=== PATIENT | female | born 1990 | race Caucasian/White ===

== ENCOUNTER 2016-12-27 11:30 | Inpatient (IN) | payer OTHER ==
[~2016-12-27] VITALS: Ht 162.6 cm; Wt 78.6 kg
[2016-12-27 12:50] VITALS: Ht 162.6 cm; Wt 78.6 kg
[2016-12-27 12:51] VITALS: BP 124/84; PULSE 80; RESP 20
[2016-12-27] MEDS ORDERED: CARBOPROST 250 MCG INJ IM PRN (13:00)
[2016-12-27] MEDS ORDERED: DINOPROSTONE 10 MG VAG SUPP VAG ONE (13:00)
[2016-12-27] MEDS ORDERED: METHYLERGONOVINE 0.2 MG INJ IM PRN (13:00)
[2016-12-27] MEDS ORDERED: BUTORPHANOL 2 MG INJ IV PRN ×2 (13:00)
[2016-12-27] MEDS ORDERED: OXYTOCIN 30 UNITS/LR 500 ML IV PRN (13:00)
[2016-12-27] MEDS ORDERED: LACTATED RINGER'S 1,000 ML IV PRN (13:00)
[2016-12-27] MEDS ORDERED: IBUPROFEN 600 MG TAB PO PRN (13:00)
[2016-12-27] MEDS ORDERED: LIDOCAINE 1% (MPF) 30 ML INJ INJ PRN (13:00)
[2016-12-27] MEDS ORDERED: MISOPROSTOL 200 MCG TAB PR PRN (13:00)
[2016-12-27] MEDS ORDERED: OXYTOCIN 30 UNITS/LR 500 ML IV SCH ×2 (13:00→18:30)
[2016-12-27] MEDS: LACTATED RINGER'S 1,000 ML IV SCH ×2 (13:04→17:22)
[2016-12-27 13:08] LABS: BASOPHILS % 0.3 % (0.0-2.0); EOSINOPHILS # 0.1 10^3/ul (0.0-0.5); EOSINOPHILS % 0.8 % (0.0-7.0); HEMATOCRIT 42.4 % (37.0-47.0); LYMPHOCYTES # 2.2 10^3/ul (0.8-2.9); LYMPHOCYTES % 25.3 % (15.0-51.0); MEAN CORPUSCULAR HEMOGLOBIN 33.2 pg (29.0-33.0); MEAN CORPUSCULAR HGB CONC 35.4 g/dl (32.0-37.0); MEAN CORPUSCULAR VOLUME 93.8 fl (82.0-101.0); MEAN PLATELET VOLUME 10.8 fl (7.4-10.4); MONOCYTE # 0.7 10^3/ul (0.3-0.9); MONOCYTES % 8.6 % (0.0-11.0); NEUTROPHILS % 64.3 % (39.0-77.0); PLATELET COUNT 209 10^3/UL (140-415); RED BLOOD COUNT 4.52 10^6/ul (4.20-5.40); RED CELL DISTRIBUTION WIDTH 13.3 % (11.5-14.5); WHITE BLOOD COUNT 8.6 10^3/ul (4.8-10.8)
[2016-12-27 13:18] LABS: INR 0.88; PROTIME 11.9 Sec (12.2-14.2); PT RATIO 0.9
[2016-12-27 13:19] LABS: PARTIAL THROMBOPLASTIN TIME 29.7 Sec (25.0-35.0)
[2016-12-27 13:39] LABS: ALBUMIN/GLOBULIN RATIO 0.97; BILIRUBIN,INDIRECT 0.2 mg/dl (0-1.1); BILIRUBIN,TOTAL 0.2 mg/dl (0.2-1.3); CREATININE 0.68 mg/dl (0.44-1.00); TOTAL PROTEIN 8.1 g/dl (6.1-8.1)
[2016-12-27 13:53] LABS: ADD UMIC NO; UR ASCORBIC ACID NEGATIVE (NEGATIVE); UR BILIRUBIN (Dip) NEGATIVE (NEGATIVE); UR BLOOD (Dip) NEGATIVE (NEGATIVE); UR CLARITY CLEAR (CLEAR); UR COLOR STRAW (YELLOW); UR GLUCOSE (Dip) NEGATIVE (NEGATIVE); UR KETONES (Dip) NEGATIVE (NEGATIVE); UR LEUKOCYTE ESTERASE (Dip) NEGATIVE Leu/ul (NEGATIVE); UR NITRITE (Dip) NEGATIVE (NEGATIVE); UR SPECIFIC GRAVITY (Dip) 1.008 (1.003-1.030); UR TOTAL PROTEIN (Dip) NEGATIVE (NEGATIVE); UR UROBILINOGEN (Dip) NEGATIVE (NEGATIVE)
--- NOTE | 2016-12-27 19:07 | RADRPT ---
PROCEDURE: US OB. CLINICAL INDICATION: Elevated blood pressure TECHNIQUE: Multiple sonographic OB images of the pelvis were obtained. The images were reviewed o n a PACS workstation. COMPARISON: No prior studies are available for comparison. FINDINGS: There is a single viable intrauterine gestation. Cardiac activity is present with 135 beats per min hopi. There is a vertex presentation. Measurements were made in order to determine age. The results are as follows: BPD =9.7 cm HC =34.2 cm AC =35.7 cm FL =7.2 cm. Estimated gestational age of approximately 39 weeks 2 days. The estimated date of delivery is 01/01/2017. The EFW = 3749 grams. The placenta is anterior in location and grade 2. There is no evidence for an abruption or placenta previa. There are no adnexal masses. IMPRESSION: 1. Single live intrauterine with an estimated gestational age of 39 weeks and 2 days. 2. Estimated gestational weight of 3749 grams. RPTAT: HPNM Physician [place] Date Time Electronically viewed and signed by Physician Bay on 12/27/2016 19:07 /
[2016-12-28] MEDS: LACTATED RINGER'S 1,000 ML IV SCH ×3 (02:55→20:54)
[2016-12-28] MEDS ORDERED: FENTAnyl 2MCG/ML-ROPIV 0.2% 100 ML ONE (04:36)
[2016-12-28] MEDS ORDERED: FENTAnyl 2MCG/ML-ROPIV 0.2% 100 ML BAG EPI SCH (05:00)
[2016-12-28] MEDS ORDERED: NALOXONE (0.4 MG/ML) INJ IV PRN (05:00)
--- NOTE | 2016-12-28 10:10 | HP ---
Date/Time of Note Date/Time of Note DATE: 12/28/16 TIME: 10:08 OB - History Hx of Present Free Text/Dictation at 38 weeks with elevated bp and induction for PIH Care: Good Care Ultrasounds: Normal mid trimester US Obstetrical Complications: Gestational Hypertension Medical Complications: None Past Family/Social History * Past Medical, Surgical, Family and Obstetric Histories reviewed from chart. OB Admission Exam Vital Signs Vital Signs Vital Signs Date Time Temp Pulse Resp B/P Pulse Ox O2 Delivery O2 Flow Rate FiO2 12/27/16 12:51 98.6 80 20 124/84 Room Air Physical Exam HEENT: WNL Heart: Rhythm Normal Lungs: Clear, Equal Abdomen: WNL Extremities: Normal Reflexes: Normal Cervical Dilatation: 10cm Effacement: 100% Station: +3 Membranes: Ruptured Amniotic Fluid: Clear Heart Rate: 130's Accelerations: Accelerations Present Decelerations: No Decelerations Contractions on Admission: None Intensity: Moderate Last 72 hours Lab Results CBC & BMP 12/27/16 12:35 Liver Function Test 12/27/16 12:35 Alanine Aminotransferase (ALT/SGPT) 24 Albumin 4.0 Alkaline Phosphatase 200 H Aspartate Amino Transf (AST/SGOT) 25 Direct Bilirubin 0.00 Total Protein 8.1 OB Assessment/Plan Reason for admission: induction of labor Plan: Induction ANNALISA CHACKO MD Dec 28, 2016 10:10
[2016-12-28] MEDS ORDERED: MAGNESIUM SULFATE 4 GM/100 ML 100 ML ONE (11:23)
--- NOTE | 2016-12-28 11:25 | LDN ---
Date/Time of Note Date/Time of Note DATE: 12/28/16 TIME: 11:24 Delivery Summary term preg nsd Placenta Delivered: Spontaneously Meconium: none Episiotomy: No Perineal laceration: 2 Anesthesia type: Epidural Estimated blood loss: 350 Sponge & Needle done & correct: Yes All needle counts correct: Yes Any foreign bodies felt in the: No Problems: ANNALISA CHACKO MD Dec 28, 2016 11:25
[2016-12-28] MEDS: OXYTOCIN 30 UNITS/LR 500 ML IV SCH ×2 (11:30→13:13)
[2016-12-28] MEDS ORDERED: MAGNESIUM SULFATE 4 GM/100 ML 100 ML IV ONE (11:30)
[2016-12-28 11:56] LABS: BASOPHILS % 0.1 % (0.0-2.0); EOSINOPHILS % 0.1 % (0.0-7.0); HEMATOCRIT 41.5 % (37.0-47.0); HEMOGLOBIN 13.7 g/dl (12.0-16.0); LYMPHOCYTES # 2.6 10^3/ul (0.8-2.9); LYMPHOCYTES % 15.6 % (15.0-51.0); MEAN CORPUSCULAR HEMOGLOBIN 32.9 pg (29.0-33.0); MEAN CORPUSCULAR VOLUME 99.5 fl (82.0-101.0); MEAN PLATELET VOLUME 10.8 fl (7.4-10.4); MONOCYTES % 6.1 % (0.0-11.0); NEUTROPHILS % 77.6 % (39.0-77.0); PLATELET COUNT 215 10^3/UL (140-415); RED BLOOD COUNT 4.17 10^6/ul (4.20-5.40); RED CELL DISTRIBUTION WIDTH 13.7 % (11.5-14.5); WHITE BLOOD COUNT 16.8 10^3/ul (4.8-10.8)
[2016-12-28] MEDS: MAGNESIUM SULFATE 20 GM/500 ML 500 ML IV SCH ×2 (12:06→19:56)
[2016-12-28 12:20] LABS: ALBUMIN 3.6 g/dl (3.3-4.9); ALBUMIN/GLOBULIN RATIO 0.94; BILIRUBIN,INDIRECT 0.4 mg/dl (0-1.1); BILIRUBIN,TOTAL 0.4 mg/dl (0.2-1.3); CALCIUM 9.3 mg/dl (8.4-10.2); CREATININE 0.67 mg/dl (0.44-1.00); POTASSIUM 4.3 mmol/L (3.5-5.1); TOTAL PROTEIN 7.4 g/dl (6.1-8.1); URIC ACID 7.1 mg/dl (3.1-7.9)
[2016-12-28 12:26] LABS: ADD UMIC YES; UR ASCORBIC ACID NEGATIVE (NEGATIVE); UR BACTERIA FEW /HPF (NONE SEEN); UR BILIRUBIN (Dip) NEGATIVE (NEGATIVE); UR BLOOD (Dip) 3+ mg/dL (NEGATIVE); UR CLARITY CLEAR (CLEAR); UR COLOR YELLOW (YELLOW); UR GLUCOSE (Dip) 2+ mg/dL (NEGATIVE); UR KETONES (Dip) TRACE mg/dL (NEGATIVE); UR LEUKOCYTE ESTERASE (Dip) TRACE Leu/ul (NEGATIVE); UR MUCUS FEW /HPF (NONE SEEN); UR NITRITE (Dip) NEGATIVE (NEGATIVE); UR RBC 114 /HPF (0-5); UR SPECIFIC GRAVITY (Dip) 1.009 (1.003-1.030); UR TOTAL PROTEIN (Dip) 1+ mg/dl (NEGATIVE); UR UROBILINOGEN (Dip) NEGATIVE (NEGATIVE)
[2016-12-28 16:33] LABS: BASOPHILS % 0.2 % (0.0-2.0); HEMATOCRIT 26.1 % (37.0-47.0); HEMOGLOBIN 9.1 g/dl (12.0-16.0); LYMPHOCYTES # 2.3 10^3/ul (0.8-2.9); LYMPHOCYTES % 10.1 % (15.0-51.0); MEAN CORPUSCULAR HEMOGLOBIN 33.3 pg (29.0-33.0); MEAN CORPUSCULAR HGB CONC 34.9 g/dl (32.0-37.0); MEAN CORPUSCULAR VOLUME 95.6 fl (82.0-101.0); MEAN PLATELET VOLUME 10.9 fl (7.4-10.4); MONOCYTE # 1.1 10^3/ul (0.3-0.9); NEUTROPHILS % 84.1 % (39.0-77.0); PLATELET COUNT 191 10^3/UL (140-415); RED BLOOD COUNT 2.73 10^6/ul (4.20-5.40); RED CELL DISTRIBUTION WIDTH 13.6 % (11.5-14.5); WHITE BLOOD COUNT 22.3 10^3/ul (4.8-10.8)
[2016-12-28 17:34] VITALS: BP 93/51; PULSE 59; RESP 20
[2016-12-28] MEDS ORDERED: CARBOPROST 250 MCG INJ IM PRN (21:30)
[2016-12-28] MEDS ORDERED: OXYTOCIN 30 UNITS/LR 500 ML IV PRN (21:30)
[2016-12-28] MEDS ORDERED: METHYLERGONOVINE 0.2 MG INJ IM PRN (21:30)
[2016-12-28] MEDS ORDERED: MAGNESIUM HYDROXIDE 30ML CUP PO PRN (21:30)
[2016-12-28] MEDS ORDERED: LANOLIN 7 GM TUBE TOP PRN (21:30)
[2016-12-28] MEDS ORDERED: ACETAMINOPHEN 325 MG TAB PO PRN (21:30)
[2016-12-28] MEDS ORDERED: DIPHENHYDRAMINE 25 MG CAP PO PRN (21:30)
[2016-12-28] MEDS ORDERED: BENZOCAINE 20% 56 ML SPRAY TOP PRN (21:30)
[2016-12-28] MEDS ORDERED: MISOPROSTOL 200 MCG TAB PR PRN (21:30)
[2016-12-28] MEDS ORDERED: WITCH HAZEL/GLYCERIN PAD PR PRN (21:30)
[2016-12-28] MEDS ORDERED: SENNA/DOCUSATE NA (8.6MG/50MG) TAB PO PRN (21:30)
[2016-12-28] MEDS ORDERED: ZOLPIDEM 5 MG TAB PO PRN (21:30)
[2016-12-28] MEDS ORDERED: HYDROCODONE/APAP (5/325) TAB PO PRN (21:30)
[2016-12-28 22:00] VITALS: BP 108/62; PULSE 119; RESP 18
[2016-12-28 23:00] VITALS: BP 111/63; PULSE 111; RESP 18
[2016-12-28] MEDS: IBUPROFEN 800 MG TAB PO SCH (23:48)
[2016-12-29] VITALS (18 sets, daily range): BP systolic 94–117; BP diastolic 50–75; PULSE 84–108; RESP 18–20
[2016-12-29] MEDS: OXYTOCIN 30 UNITS/LR 500 ML IV SCH ×2 (01:02→02:07)
[2016-12-29] MEDS: LACTATED RINGER'S 1,000 ML IV* SCH ×3 (05:02→13:02)
[2016-12-29] MEDS: IBUPROFEN 800 MG TAB PO SCH ×4 (05:32→23:51)
[2016-12-29] MEDS: MAGNESIUM SULFATE 20 GM/500 ML 500 ML IV SCH (05:34)
[2016-12-29 10:00] LABS: ABNORMAL IP MESSAGE 1; HEMATOCRIT 15.9 % (37.0-47.0); MEAN CORPUSCULAR HEMOGLOBIN 33.5 pg (29.0-33.0); MEAN CORPUSCULAR HGB CONC 34.6 g/dl (32.0-37.0); MEAN PLATELET VOLUME 10.9 fl (7.4-10.4); PLATELET COUNT 139 10^3/UL (140-415); RED BLOOD COUNT 1.64 10^6/ul (4.20-5.40); RED CELL DISTRIBUTION WIDTH 13.8 % (11.5-14.5); WHITE BLOOD COUNT 13.3 10^3/ul (4.8-10.8)
[2016-12-29 11:39] LABS: HEMOGLOBIN 5.5 g/dl (12.0-16.0); POSITIVE DIFF @See below
[2016-12-29 13:30] LABS: EOSINOPHILS % (M) 2 % (0-7); MONOCYTES % (M) 6 % (0-11); PLATELET ESTIMATE NORMAL; POLYCHROMASIA 1+ (0-0)
--- NOTE | 2016-12-29 17:05 | PN ---
Date/Time of Note Date/Time of Note DATE: 12/29/16 TIME: 16:59 OB Subjective Subjective Subjective Denies any , shortness of breath or chest pain. She is in bed. Has not been ambulating yet. Vaginal bleeding decreased. Has not been able to breast-feed. Bottle feeding. Been out of the bed. OB Objective Objective Objective Const: pale looking Head: [Atraumatic] Eyes: [Normal Conjunctiva] ENT: [Normal External Ears, Nose and Mouth.] Neck: [Full range of motion. No meningismus.] Resp: [Clear to auscultation bilaterally] Cardio: [Regular rate and rhythm, no murmurs] Abd: [Soft, non tender, non distended. Normal bowel sounds]. Fundus is firm Skin: Pale Back: [No midline or flank tenderness] Ext: [No cyanosis, 1+ Bilateral symetric edema Neuro: [Awake and alert] Psych: [Normal Mood and Affect] Hematology - 72 Hrs Test 12/27/16 12:35 12/28/16 11:35 12/28/16 16:20 12/29/16 09:14 White Blood Count 8.610^3/ul (4.8-10.8) 16.810^3/ul (4.8-10.8) #H 22.310^3/ul (4.8-10.8) #H 13.310^3/ul (4.8-10.8) #H Red Blood Count 4.5210^6/ul (4.20-5.40) 4.1710^6/ul (4.20-5.40) L 2.7310^6/ul (4.20-5.40) #L 1.6410^6/ul (4.20-5.40) #L Hemoglobin 15.0g/dl (12.0-16.0) 13.7g/dl (12.0-16.0) 9.1g/dl (12.0-16.0) #L 5.5g/dl (12.0-16.0) Hematocrit 42.4% (37.0-47.0) 41.5% (37.0-47.0) 26.1% (37.0-47.0) #L 15.9% (37.0-47.0) #L Mean Corpuscular Volume 93.8fl (82.0-101.0) 99.5fl (82.0-101.0) 95.6fl (82.0-101.0) 97.0fl (82.0-101.0) Mean Corpuscular Hemoglobin 33.2pg (29.0-33.0) H 32.9pg (29.0-33.0) 33.3pg (29.0-33.0) H 33.5pg (29.0-33.0) H Mean Corpuscular Hemoglobin Concent 35.4g/dl (32.0-37.0) 33.0g/dl (32.0-37.0) 34.9g/dl (32.0-37.0) 34.6g/dl (32.0-37.0) Red Cell Distribution Width 13.3% (11.5-14.5) 13.7% (11.5-14.5) 13.6% (11.5-14.5) 13.8% (11.5-14.5) Platelet Count 61562^3/UL (140-415) 58910^3/UL (140-415) 77063^3/UL (140-415) 85821^3/UL (140-415) #L Mean Platelet Volume 10.8fl (7.4-10.4) H 10.8fl (7.4-10.4) H 10.9fl (7.4-10.4) H 10.9fl (7.4-10.4) H Neutrophils % 64.3% (39.0-77.0) 77.6% (39.0-77.0) H 84.1% (39.0-77.0) H % (39.0-77.0) Lymphocytes % 25.3% (15.0-51.0) 15.6% (15.0-51.0) 10.1% (15.0-51.0) L % (15.0-51.0) Monocytes % 8.6% (0.0-11.0) 6.1% (0.0-11.0) 5.0% (0.0-11.0) % (0.0-11.0) Eosinophils % 0.8% (0.0-7.0) 0.1% (0.0-7.0) 0.0% (0.0-7.0) % (0.0-7.0) Basophils % 0.3% (0.0-2.0) 0.1% (0.0-2.0) 0.2% (0.0-2.0) % (0.0-2.0) Nucleated Red Blood Cells % 0.0/100WBC (0.0-0.0) 0.0/100WBC (0.0-0.0) 0.0/100WBC (0.0-0.0) 0.0/100WBC (0.0-0.0) Neutrophils # (Manual) 5.510^3/ul (1.7-7.5) 13.010^3/ul (1.7-7.5) H 18.710^3/ul (1.7-7.5) H 10^3/ul (1.7-7.5) Lymphocytes # 2.210^3/ul (0.8-2.9) 2.610^3/ul (0.8-2.9) 2.310^3/ul (0.8-2.9) 10^3/ul (0.8-2.9) Monocytes # 0.710^3/ul (0.3-0.9) 1.010^3/ul (0.3-0.9) H 1.110^3/ul (0.3-0.9) H 10^3/ul (0.3-0.9) Eosinophils # 0.110^3/ul (0.0-0.5) 0.010^3/ul (0.0-0.5) 0.010^3/ul (0.0-0.5) 10^3/ul (0.0-0.5) Basophils # 0.010^3/ul (0.0-0.1) 0.010^3/ul (0.0-0.1) 0.010^3/ul (0.0-0.1) 10^3/ul (0.0-0.1) Nucleated Red Blood Cells # 0.010^3/ul (0.0-0.0) 0.010^3/ul (0.0-0.0) 0.010^3/ul (0.0-0.0) 10^3/ul (0.0-0.0) Segmented Neutrophils % (Manual) 75% (39-77) Lymphocytes % (Manual) 17% (15-51) Monocytes % (Manual) 6% (0-11) Eosinophils % (Manual) 2% (0-7) Absolute Lymphocytes (Manual) 2.210^3/ul (0.8-2.9) Absolute Monocytes (Manual) 0.710^3/ul (0.3-0.9) Platelet Estimate NORMAL Polychromasia 1+ (0-0) Chemistry Test 12/27/16 12:35 12/28/16 11:35 12/28/16 16:20 12/29/16 00:38 Sodium Level 141mmol/L (135-144) 139mmol/L (135-144) Potassium Level 4.0mmol/L (3.5-5.1) 4.3mmol/L (3.5-5.1) Chloride Level 107mmol/L (97-110) 100mmol/L (97-110) Carbon Dioxide Level 17mmol/L (21-31) L 17mmol/L (21-31) L Anion Gap 21 (8-16) H 26 (8-16) H Blood Urea Nitrogen 13mg/dl (7-20) 11mg/dl (7-20) Creatinine 0.68mg/dl (0.44-1.00) 0.67mg/dl (0.44-1.00) Glucose Level 99mg/dl (70-220) 134mg/dl (70-220) Uric Acid 7.3mg/dl (3.1-7.9) 7.1mg/dl (3.1-7.9) Calcium Level 10.0mg/dl (8.4-10.2) 9.3mg/dl (8.4-10.2) Total Bilirubin 0.2mg/dl (0.2-1.3) 0.4mg/dl (0.2-1.3) Direct Bilirubin 0.00mg/dl (0.00-0.20) 0.00mg/dl (0.00-0.20) Indirect Bilirubin 0.2mg/dl (0-1.1) 0.4mg/dl (0-1.1) Aspartate Amino Transf (AST/SGOT) 25IU/L (15-46) 30IU/L (15-46) Alanine Aminotransferase (ALT/SGPT) 24IU/L (13-69) 19IU/L (13-69) Alkaline Phosphatase 200IU/L (42-121) H 179IU/L (42-121) H Total Protein 8.1g/dl (6.1-8.1) 7.4g/dl (6.1-8.1) Albumin 4.0g/dl (3.3-4.9) 3.6g/dl (3.3-4.9) Globulin 4.10g/dl (1.3-3.2) H 3.80g/dl (1.3-3.2) H Albumin/Globulin Ratio 0.97 0.94 Magnesium Level 1.7mg/dl (1.7-2.5) 5.1mg/dl (1.7-2.5) #*H 5.3mg/dl (1.7-2.5) *H Test 12/29/16 09:14 Magnesium Level 6.2mg/dl (1.7-2.5) *H OB Assessment/Plan Other Assessment: PPD #1 Status post status post induction for PIH, Was on magnesium for 24 hours. Blood pressure well controlled now. No evidence of mag toxicity severe anemia secondary to hemorrhage. Pale looking. Discussed with the patient regarding blood transfusion, versus expectant management. Desires transfusion. Risk and benefit of blood transfusion including risk of infection of blood including HIV, hepatitis B and C and transfusion reaction discussed with the patient. Informed consent was obtained DC magnesium Continue monitoring blood pressure. Currently blood pressures are well controlled without meds Transfuse 2 units of PRBC Repeat CBC 8 hours after blood transfusion Expectant management Routine care Ambulation only with nursing assistance ELLEN ALARCON MD Dec 29, 2016 17:05
[2016-12-29 19:33] LABS: BASOPHILS % 0.1 % (0.0-2.0); EOSINOPHILS % 0.3 % (0.0-7.0); HEMATOCRIT 21.8 % (37.0-47.0); HEMOGLOBIN 7.6 g/dl (12.0-16.0); LYMPHOCYTES % 18.8 % (15.0-51.0); MEAN CORPUSCULAR HEMOGLOBIN 32.6 pg (29.0-33.0); MEAN CORPUSCULAR HGB CONC 34.9 g/dl (32.0-37.0); MEAN CORPUSCULAR VOLUME 93.6 fl (82.0-101.0); MEAN PLATELET VOLUME 10.3 fl (7.4-10.4); MONOCYTE # 0.8 10^3/ul (0.3-0.9); MONOCYTES % 7.8 % (0.0-11.0); NEUTROPHILS % 72.2 % (39.0-77.0); PLATELET COUNT 144 10^3/UL (140-415); RED BLOOD COUNT 2.33 10^6/ul (4.20-5.40); RED CELL DISTRIBUTION WIDTH 14.6 % (11.5-14.5); WHITE BLOOD COUNT 10.8 10^3/ul (4.8-10.8)
--- NOTE | 2016-12-29 20:12 | DS ---
Date/Time of Note Date/Time of Note DATE: 12/29/16 TIME: 20:12 Discharge Summary Admission/Discharge Info Admit Date/Time Dec 27, 2016 at 11:30 Discharge Date/Time Discharge Diagnosis TERM PREG Patient Condition: Stable Hospital Course UNREMARKABLE Primary Care Provider Care Physician No Primary Pending Labs Laboratory Tests Test 12/29/16 00:38 12/29/16 09:14 12/29/16 19:01 Magnesium Level 5.3mg/dl (1.7-2.5) 6.2mg/dl (1.7-2.5) White Blood Count 13.310^3/ul (4.8-10.8) 10.810^3/ul (4.8-10.8) Red Blood Count 1.6410^6/ul (4.20-5.40) 2.3310^6/ul (4.20-5.40) Hemoglobin 5.5g/dl (12.0-16.0) 7.6g/dl (12.0-16.0) Hematocrit 15.9% (37.0-47.0) 21.8% (37.0-47.0) Mean Corpuscular Volume 97.0fl (82.0-101.0) 93.6fl (82.0-101.0) Mean Corpuscular Hemoglobin 33.5pg (29.0-33.0) 32.6pg (29.0-33.0) Mean Corpuscular Hemoglobin Concent 34.6g/dl (32.0-37.0) 34.9g/dl (32.0-37.0) Red Cell Distribution Width 13.8% (11.5-14.5) 14.6% (11.5-14.5) Platelet Count 61004^3/UL (140-415) 34657^3/UL (140-415) Mean Platelet Volume 10.9fl (7.4-10.4) 10.3fl (7.4-10.4) Neutrophils % % (39.0-77.0) 72.2% (39.0-77.0) Segmented Neutrophils % (Manual) 75% (39-77) Lymphocytes % % (15.0-51.0) 18.8% (15.0-51.0) Lymphocytes % (Manual) 17% (15-51) Monocytes % % (0.0-11.0) 7.8% (0.0-11.0) Monocytes % (Manual) 6% (0-11) Eosinophils % % (0.0-7.0) 0.3% (0.0-7.0) Eosinophils % (Manual) 2% (0-7) Basophils % % (0.0-2.0) 0.1% (0.0-2.0) Nucleated Red Blood Cells % 0.0/100WBC (0.0-0.0) 0.0/100WBC (0.0-0.0) Neutrophils # (Manual) 10^3/ul (1.7-7.5) 7.810^3/ul (1.7-7.5) Absolute Lymphocytes (Manual) 2.210^3/ul (0.8-2.9) Lymphocytes # 10^3/ul (0.8-2.9) 2.010^3/ul (0.8-2.9) Monocytes # 10^3/ul (0.3-0.9) 0.810^3/ul (0.3-0.9) Absolute Monocytes (Manual) 0.710^3/ul (0.3-0.9) Eosinophils # 10^3/ul (0.0-0.5) 0.010^3/ul (0.0-0.5) Basophils # 10^3/ul (0.0-0.1) 0.010^3/ul (0.0-0.1) Nucleated Red Blood Cells # 10^3/ul (0.0-0.0) 0.010^3/ul (0.0-0.0) Platelet Estimate NORMAL Polychromasia 1+ (0-0) ANNALISA CHACKO MD Dec 29, 2016 20:12
--- NOTE | 2016-12-29 20:13 | PD.PPDC ---
LAUNCH MANAGER Discharge Instruction Condition Patient Condition: Stable Diet Diet: Resume Regular Diet Activity/Restrictions Activity: Normal Activity May Shower Restrictions: No Exercising No Lifting No Driving No Sexual Activity Nothing in the Vagina No [place] No Tampons, douche Wound/Drain Care Instructions Wound/Drain Care Instructions: Wash with soap and water Keep clean and dry Follow-up Follow-up with Physician: 3, Week/Weeks ANNALISA CHACKO MD Dec 29, 2016 20:13
[2016-12-29] MEDS: POLYSACCHARIDE IRON COMPLEX CAP PO SCH (21:20)
[2016-12-30 04:00] VITALS: BP 112/55; PULSE 82; RESP 18
[2016-12-30] MEDS: IBUPROFEN 800 MG TAB PO SCH ×2 (05:33→12:02)
[2016-12-30 08:00] VITALS: BP 109/62; PULSE 77; RESP 17
[2016-12-30] MEDS ORDERED: DIPHTH/TET/ACEL PERTUSS (ADULT) 0.5 ML VIAL IM* ONE (09:00)
[2016-12-30] MEDS ORDERED: MEASLES,MUMPS,RUBELLA VACCINE INJ SC* ONE (09:00)
[2016-12-30] MEDS ORDERED: VARICELLA VACCINE LIVE/PF 1,350 UNIT/0.5 ML ML SC* ONE (09:00)
[2016-12-30] MEDS ORDERED: ASCORBIC ACID 500 MG TAB GTB SCH (09:00)
[2016-12-30] MEDS: POLYSACCHARIDE IRON COMPLEX CAP PO SCH (09:05)
== END 2016-12-30 14:10 | disposition home or self-care (01) | DRG 775 ==
LOC: L-D 11:30 → PP1 12-28 22:10
PROVIDERS: ADMIT Obstetrics & Gynecology; ATTEND Obstetrics & Gynecology
PROC: 10E0XZZ Delivery of Products of Conception, External Approach (ICD-10-PCS; principal; 2016-12-28)
PROC: 0KQM0ZZ Repair Perineum Muscle, Open Approach (ICD-10-PCS; 2016-12-28)
PROC: 3E033VJ Introduction of Other Hormone into Peripheral Vein, Percutaneous Approach (ICD-10-PCS; 2016-12-28)
DX: O13.4 Gestational [pregnancy-induced] hypertension without significant proteinuria, complicating childbirth (principal); O70.1 Second degree perineal laceration during delivery; Z3A.38 38 weeks gestation of pregnancy; Z37.0 Single live birth
CPT/HCPCS: 36430; 62319; 76815; 80053; 81001; 81003; 83735; 84560; 85025; 85384; 85610; 85730; 86592; 86850; 86900; 86901; 86920; 90715; 90716; J0595; J2590; J3010; J3475; J7120; P9016